=== PATIENT | male | born 1965 | race Caucasian/White ===

== ENCOUNTER → 2018-03-28 | Outpatient (CLI) | payer BC | LOC: LAB.O 10:40 | PROVIDERS: ATTEND Urology | DX: D75.1 Secondary polycythemia (principal) ==

== ENCOUNTER → 2018-06-19 | Outpatient (CLI) | payer BC | LOC: LAB.O 09:23 | PROVIDERS: ATTEND Urology | DX: D75.1 Secondary polycythemia (principal) ==

== ENCOUNTER → 2018-08-06 | Outpatient (CLI) | payer BC | LOC: LAB.O 17:15 | PROVIDERS: ATTEND Urology | DX: D75.1 Secondary polycythemia (principal) ==

== ENCOUNTER → 2018-10-15 | Outpatient (CLI) | payer BC | LOC: LAB.O 11:33 | PROVIDERS: ATTEND Urology | DX: D75.1 Secondary polycythemia (principal) ==

== ENCOUNTER → 2019-01-21 | Outpatient (CLI) | payer BC | LOC: LAB.O 10:28 | PROVIDERS: ATTEND Family Medicine | DX: D45 Polycythemia vera (principal) ==

== ENCOUNTER → 2019-02-19 | Outpatient (CLI) | payer BC | LOC: LAB.O 11:09 | PROVIDERS: ATTEND Family Medicine | DX: D45 Polycythemia vera (principal) ==

== ENCOUNTER → 2019-03-05 | Outpatient (CLI) | payer BC | LOC: LAB.O 10:33 | PROVIDERS: ATTEND Urology | DX: D75.1 Secondary polycythemia (principal) ==

== ENCOUNTER → 2019-06-01 | Outpatient (CLI) | payer BC ==
--- NOTE | 2019-06-01 16:53 | RAD ---
EXAM DESCRIPTION: Thumb,Right CLINICAL HISTORY: 53 years Male, UNSP OPEN WOUND COMPARISON: None. FINDINGS: A bandage surrounds the thumb. The AP view of the thumb shows no specific abnormality but the lateral view suggests a volar surface corner fracture at the base of the distal phalanx of the thumb with very slight distraction. Proximal phalanx appears intact. IMPRESSION: Avulsion fracture from the volar base of the distal phalanx of the thumb with slight distraction. Electronically signed by: Christopher Frazier MD 06/01/2019 4:50 PM CDT
== END ==
LOC: RAD 16:31
PROVIDERS: ATTEND Nurse Practitioner Family
DX: S62.521A Displaced fracture of distal phalanx of right thumb, initial encounter for closed fracture (principal)

== ENCOUNTER → 2019-06-11 | Outpatient (CLI) | payer BC | LOC: LAB.O 10:57 | PROVIDERS: ATTEND Family Medicine | DX: D45 Polycythemia vera (principal) ==

== ENCOUNTER 2020-07-25 10:47 | Emergency (ER) | payer BC ==
[2020-07-25] MEDS ORDERED: DEXAMETHASONE INJ 10 MG/ML VIAL IV ONE (10:48)
[2020-07-25] MEDS ORDERED: KETOROLAC TROMETHAMINE INJ 30 MG/ML VIAL IV ONE (10:48)
[2020-07-25] MEDS ORDERED: PROPOFOL 200 MG/20 ML VIAL IV ONE (10:48)
[2020-07-25] MEDS ORDERED: LIDOCAINE 1% 10 ML VIAL INJ ONE (10:48)
[2020-07-25] MEDS ORDERED: ONDANSETRON INJ 4 MG/2 ML VIAL IV ONE (10:48)
[2020-07-25] MEDS: MORPHINE SULFATE INJ 10 MG/ML VIAL IV ONE (11:14)
[2020-07-25] MEDS: SODIUM CHLORIDE 0.9% 1000ML 1,000 ML IVS ONE (11:46)
--- NOTE | 2020-07-25 13:08 | CT ---
EXAM DESCRIPTION: Abdomen/Pelvis w/Contrast CLINICAL HISTORY: 54 years Male, rt sided abd pain 24 hrs, wbc 13k TECHNIQUE: This exam was performed according to our departmental dose-optimization program, which includes automated exposure control, adjustment of the mA and/or kV according to patient size and/or use of iterative reconstruction technique. COMPARISON: None at time of initial interpretation. FINDINGS: Bibasilar volume loss. No focal consolidation or suspicious pulmonary nodule. No focal hepatic lesion. No biliary dilatation. The gallbladder is unremarkable. The portal vein is patent. The spleen, pancreas and adrenal glands are unremarkable. Symmetric renal parenchymal enhancement. No hydronephrosis. No urolithiasis. Unremarkable bladder. No evidence of bowel obstruction. Acute uncomplicated appendicitis. No free air. No drainable fluid collection. No adenopathy. No focal fluid collection. No free air. Normal caliber abdominal aorta. Mild atherosclerotic disease. No acute or suspicious osseous abnormality. Scattered degenerative changes present. IMPRESSION: Acute uncomplicated appendicitis. Findings discussed with the ordering clinician at 1:08 PM 07/25/2020 Electronically signed by: Judson Cyr MD 07/25/2020 1:07 PM CDT
[2020-07-25] MEDS ORDERED: METOPROLOL TARTRATE 25 MG TAB PO ONE (13:14)
--- NOTE | 2020-07-25 13:14 | ED.PDOC ---
History of Present Illness - General Chief Complaint: GI Problem Time Seen by Provider: 07/25/20 10:49 Source: patient Exam Limitations: no limitations - History of Present Illness Initial Comments: The patient is a 54-year-old male presented emergency room secondary to right lateral mid abdominal pain since yesterday. No vomiting. No persistent diarrhea. No definite fever. He still has his appendix. He definitely has some guarding. No other complaints. He is pleasant and cooperative. He denies any blood thinner use. No significant cardiac history. Timing/Duration: 24 hours Severity: moderate Improving Factors: immobilization Worsening Factors: eating, movement Associated Symptoms: loss of appetite, malaise, nausea/vomiting Allergies/Adverse Reactions: Allergies NO KNOWN ALLERGY Allergy (Verified 09/06/16 07:05) Home Medications: Ambulatory Orders NK 09/06/16 Review of Systems - Review of Systems Constitutional: States: malaise EENTM: States: no symptoms reported Respiratory: States: no symptoms reported Cardiology: States: no symptoms reported Gastrointestinal/Abdominal: States: abdominal pain, nausea Genitourinary: States: no symptoms reported Musculoskeletal: States: no symptoms reported Skin: States: no symptoms reported Neurological: States: no symptoms reported Endocrine: States: no symptoms reported All other Systems: No Change from Baseline Past Medical History (General) - Patient Medical History Hx Seizures: No Hx Stroke: No Hx Dementia: No Hx Asthma: No Hx of COPD: No Hx Cardiac Disorders: No Hx Congestive Heart Failure: No Hx Pacemaker: No Hx Hypertension: No Hx Thyroid Disease: No Hx Diabetes: No Hx Gastroesophageal Reflux: No Hx Renal Disease: No Hx Cancer: No Hx of HIV: No Hx Hepatitis C: No Hx MRSA: No Surgical History: other - Vaccination History Hx Tetanus, Diphtheria Vaccination: Yes Hx Influenza Vaccination: No Hx Pneumococcal Vaccination: No - Social History Hx Tobacco Use: No Hx Chewing Tobacco Use: No Hx Alcohol Use: No Hx Substance Use: No Hx Substance Use Treatment: No Hx Depression: No Feels Threatened In Home Enviroment: No Feels Threatened In a Relationship: No Hx Physical Abuse: No Hx Emotional Abuse: No Hx Suspected Abuse: No - Female History Patient is a Female of Child Bearing Age (10 -59 yrs old): No Family Medical History - Family History Mother Family History: Unknown Physical Exam - Physical Exam General Appearance: Alert, No apparent distress Eye Exam: bilateral normal Ears, Nose, Throat: hearing grossly normal, normal pharynx, abnormal TM (R) Neck: non-tender, supple Respiratory: lungs clear, normal breath sounds, no respiratory distress, no accessory muscle use Cardiovascular/Chest: normal peripheral pulses, regular rate, rhythm, no edema Peripheral Pulses: radial,right: 2+, radial,left: 2+ Gastrointestinal/Abdominal: other - The patient does have guarding. There is significant right-sided tenderness. Rectal Exam: deferred Back Exam: no CVA tenderness, no vertebral tenderness Extremity: normal range of motion, non-tender, normal inspection, no pedal edema, normal capillary refill Neurologic: energy attorney II-XII nml as tested, alert, normal mood/affect, oriented x 3 Skin Exam: normal color Comments: Vital Signs - 24 hr 07/25/20 07/25/20 07/25/20 10:57 11:30 12:00 Temperature 99.8 F H Pulse Rate [ 91 H 90 88 Pulse Ox] Respiratory 18 18 16 Rate Blood Pressure 203/106 164/99 169/95 [Left Arm] O2 Sat by Pulse 97 94 L 93 L Oximetry Progress - Progress Progress: 07/25/20 13:15 The patient is a 54-year-old male presented emergency room secondary to acute uncomplicated appendicitis. The patient is being started on Mefoxin. General surgery has been consulted. The patient is n.p.o. Admit for surgical treatment. devon tejeda [id number] - Results/Orders Results/Orders: Laboratory Tests 07/25/20 07/25/20 07/25/20 11:00 11:05 11:05 WBC RBC Hgb Hct MCV MCH MCHC RDW Plt Count MPV Absolute Neuts (auto) Absolute Lymphs (auto) Absolute Monos (auto) Absolute Eos (auto) Absolute Basos (auto) Neutrophils % Lymphocytes % Monocytes % Eosinophils % Basophils % Sodium 134 L Potassium 4.0 Chloride 101 Carbon Dioxide 24 Anion Gap 13.0 BUN 12 Creatinine 1.30 BUN/Creatinine Ratio 9.2 L Random Glucose 105 Serum Osmolality 268.4 L Lactic Acid 1.2 Calcium 9.2 Total Bilirubin 0.9 AST 19 ALT 20 Alkaline Phosphatase 37 L Creatine Kinase 44 CK-MB (CK-2) 0.5 CK-MB (CK-2) % Not Reportable Troponin I < 0.02 Serum Total Protein 6.9 Albumin 4.0 Globulin 2.9 Albumin/Globulin Ratio 1.4 Amylase 85 Lipase 23 Urine Color Yellow Urine Appearance Clear Urine pH 6.0 Ur Specific [place] 1.025 Urine Protein Negative Urine Glucose (UA) Negative Urine Ketones Negative Urine Blood Trace-intact H Urine Nitrite Negative Urine Bilirubin Negative Urine Urobilinogen 0.2 Ur Leukocyte Esterase Negative Urine RBC 0-1 Urine WBC 0 Ur Epithelial Cells 0 Amorphous Sediment 1+ Urine Bacteria 0 Urine Mucus Small 07/25/20 11:05 WBC 13.3 H RBC 5.93 Hgb 15.0 Hct 44.7 MCV 75.3 L MCH 25.2 L MCHC 33.5 RDW 15.4 H Plt Count 168 MPV 6.8 L Absolute Neuts (auto) 11.20 H Absolute Lymphs (auto) 0.50 L Absolute Monos (auto) 1.60 H Absolute Eos (auto) 0.00 Absolute Basos (auto) 0.00 Neutrophils % 84.0 H Lymphocytes % 3.8 L Monocytes % 11.8 H Eosinophils % 0.1 L Basophils % 0.3 Sodium Potassium Chloride Carbon Dioxide Anion Gap BUN Creatinine BUN/Creatinine Ratio Random Glucose Serum Osmolality Lactic Acid Calcium Total Bilirubin AST ALT Alkaline Phosphatase Creatine Kinase CK-MB (CK-2) CK-MB (CK-2) % Troponin I Serum Total Protein Albumin Globulin Albumin/Globulin Ratio Amylase Lipase Urine Color Urine Appearance Urine pH Ur Specific [place] Urine Protein Urine Glucose (UA) Urine Ketones Urine Blood Urine Nitrite Urine Bilirubin Urine Urobilinogen Ur Leukocyte Esterase Urine RBC Urine WBC Ur Epithelial Cells Amorphous Sediment Urine Bacteria Urine Mucus CT scan of the abdomen pelvis confirms acute appendicitis that is uncomplicated. See report for details. Departure - Departure Clinical Impression: Appendicitis, acute Qualifiers: Acute appendicitis type: with localized peritonitis Appendicitis gangrene pres ence: unspecified whether gangrene present Appendicitis perforation presence: without perforation Appendicitis abscess presence: without abscess Qualified Code(s): K35.30 - Acute appendicitis with localized peritonitis, without perforation or gangrene Disposition: Admit Patient Departure Forms: ED Discharge - Pt. Copy, Patient Portal Self Enrollment Referrals: [facility] [Primary Care Provider] - 1-2 Weeks Home Medications: Ambulatory Orders NK 09/06/16 Decision To Admit - Decistion To Admit Decision to Admit Reason: Medical Nature Decision to Admit Date: 07/25/20 Decision to Admit Time: 13:16
[2020-07-25] MEDS: cefOXitin SODIUM 2 GM in SODIUM CHL 0.9% 50ML MIN-BAG+ 50 ML IVPB ONE (13:15)
[2020-07-25] MEDS ORDERED: SUGAMMADEX SODIUM 200 MG/2 ML VIAL IV ONE (13:51)
[2020-07-25] MEDS ORDERED: MIDAZOLAM INJ 2 MG/2 ML VIAL ONE (13:51)
[2020-07-25] MEDS ORDERED: ROCURONIUM BROMIDE 10 MG/ML VIAL ONE (13:52)
[2020-07-25] MEDS ORDERED: fentaNYL CITRATE INJ 50 MCG/ML AMP ONE (13:52)
[2020-07-25] MEDS: BUPIVACAINE 0.5% W/EPI 30 ML VIAL INJ ONE (14:35)
--- NOTE | 2020-07-25 15:06 | OP ---
DATE OF PROCEDURE: 07/25/20 PREOPERATIVE DIAGNOSIS: 1. Acute appendicitis. POSTOPERATIVE DIAGNOSIS: 1. Acute appendicitis. PROCEDURE: 1. Laparoscopic appendectomy. SURGEON: Gerardo Way MD ANESTHESIA: General and local. FINDINGS: Acute suppurative appendix tip. No perforation. The base was healthy. COMPLICATIONS: None. ESTIMATED BLOOD LOSS: Minimal. SPECIMEN: Appendix. PLAN: Discharge home. INDICATION: As stated. PROCEDURE: General anaesthesia was induced. He was prepped and draped in sterile fashion. 0.5% Marcaine with epinephrine was used at all incision sites. While maintaining upward traction, a dasha was made in the base of the umbilicus. A Veress needle was introduced. There was free flow of fluid into the peritoneal cavity which was insufflated to an appropriate level with CO2 gas. A 5 mm trocar was placed followed by the camera. There was no evidence of bleeding or bowel injury. The patient was positioned and the suprapubic and right lower quadrant ports were placed. The appendix was easily identified just lateral to the cecum. There were a few lateral adhesions that were easily taken down and we elevated the appendix. The appendiceal base was completely normal. The mesoappendix presented itself first, so it was stapled across with a greco load and then the base of the appendix with a blue load. The appendix was placed in the bag and removed. The staple line was examined. There was no evidence of oozing from the staple line. They were intact, no bleeding, no leakage. The suprapubic fascia was then closed with #0 Vicryl using the suture passer. The area was airtight and non-bleeding. The remaining trocars were removed. There was no bleeding from the trocar sites. The abdomen had been desufflated. The wounds were closed with Monocryl and dressing applied. He tolerated the procedure, was awakened and taken to Recovery to be discharged. #[id number] cc: IBAN Yates
--- NOTE | 2020-07-25 15:20 | HP ---
HISTORY OF PRESENT ILLNESS: This is a 54-year-old man who presented to the Emergency Room with two days of abdominal pain and now is persistent on the right lower quadrant. He denied any history of similar symptoms, no known sick contacts, no nausea or vomiting. He had no objective fever. It is very sore and he points to the right side, lateral abdomen. PAST MEDICAL HISTORY: He denies chronic medical problems. PAST SURGICAL HISTORY: Bilateral shoulder repair. ALLERGIES: NO KNOWN DRUG ALLERGIES. MEDICATIONS: None. FAMILY HISTORY: Noncontributory. SOCIAL HISTORY: The patient denies any illicit habits. REVIEW OF SYSTEMS: CONSTITUTIONAL: He has subjective fever, but no objective. HEENT: No headache, visual changes, sore throat. RESPIRATORY: No cough or wheeze. CARDIOVASCULAR: No chest pain or palpitations. GASTROINTESTINAL: As above. No nausea, vomiting, diarrhea, no history of black or bloody stools. EXTREMITIES: No complaints. PHYSICAL EXAMINATION: VITAL SIGNS: T-max 99. Heart rate in the 80s. Blood pressure 170/100. GENERAL: The patient is alert and oriented, in no distress, good attitude. HEENT: Normocephalic, atraumatic. Pupils equal and reactive. Sclerae anicteric. Oral mucosa is moist. NECK: Supple. No masses, no thyromegaly. CHEST: Clear and equal bilaterally. No wheezing or crackles. HEART: Regular rate and rhythm. No murmurs. ABDOMEN: Soft. There is right sided tenderness. There is local guarding. No diffuse rebound or evidence of peritonitis. No CVA tenderness. No hernias. EXTREMITIES: No cyanosis, clubbing or edema. LABORATORY: CMP is relatively normal. CBC shows white count 13, hematocrit 44, platelet count 168. CT scan of the abdomen was done, which I reviewed myself which does show acute appendicitis, uncomplicated, nonperforated with a normal appearing base. There is a fecalith in the mid appendix, no free air or significant free fluid. IMPRESSION: 1. Acute appendicitis. PLAN: Laparoscopic appendectomy. The patient has been consented for the procedure and wishes to proceed. #[id number] MTDD
[2020-07-25 16:13] VITALS: BP 136/82; TEMP 99.5; O2SAT 100
== END 2020-07-25 16:05 | disposition home or self-care (01) ==
LOC: ER 10:47
DX: K35.30 Acute appendicitis with localized peritonitis, without perforation or gangrene (principal); Z11.59 Encounter for screening for other viral diseases
CPT/HCPCS: 36415; 74177; 80053; 81001; 82150; 82550; 82553; 83605; 83690; 84484; 85025; 87040; 87077; 87186; 87635; J0694; J1100; J1885; J2250; J2270; J2405; J3010; J3490; J7030; J7050